=== PATIENT | male | born 1995 | race Asian ===

== ENCOUNTER 2016-12-21 22:40 | Emergency (ER) | payer OTHER ==
[~2016-12-21] VITALS: Ht 167.6 cm; Wt 86.2 kg
[2016-12-21 22:59] VITALS: BP_SYST 135
[2016-12-22] MEDS ORDERED: IBUPROFEN 600 MG TABLET PO ONE (01:00)
[2016-12-22 01:45] VITALS: BP_SYST 135
== END 2016-12-22 01:45 | disposition home or self-care (01) ==
LOC: SED 22:40
DX: S23.3XXA Sprain of ligaments of thoracic spine, initial encounter (principal); V89.2XXA Person injured in unspecified motor-vehicle accident, traffic, initial encounter; Y93.89 Activity, other specified; Y92.488 Other paved roadways as the place of occurrence of the external cause; Y99.8 Other external cause status
CPT/HCPCS: 72072-TC; 99284